=== PATIENT | male | born 1970 | race African-American/Black ===

== ENCOUNTER 2016-12-22 00:49 | Emergency (ER) | payer OTHER | END 2016-12-22 02:55 | disposition other institution (70) | LOC: ED 00:49 | DX: Z02.89 Encounter for other administrative examinations (principal) ==

== ENCOUNTER 2016-12-22 00:49 | Emergency (ER) | payer MEDICAID ==
[2016-12-22 02:55] VITALS: BP 178/91
== END 2016-12-22 02:55 | disposition other institution (70) ==
LOC: ED 00:49
DX: I10 Essential (primary) hypertension (principal); E11.65 Type 2 diabetes mellitus with hyperglycemia; Z79.4 Long term (current) use of insulin
CPT/HCPCS: 82962; J1815; J2060